=== PATIENT | female | born 1965 | race Caucasian/White ===

== ENCOUNTER 2017-05-18 06:13 | Day surgery (SDC) | payer OTHER ==
[~2017-05-18] VITALS: Ht 170.2 cm; Wt 114.3 kg
[2017-05-18] VITALS (7 sets, daily range): BP systolic 125–186; BP diastolic 59–99
[~2017-05-18 06:13] MED LIST: ARTI99.0; ASPI81TA21; CALCTAB68 PO; DIVA500T9; FLUTISP; FURO20TA2; GABA-279; MULT1TAB10 PO; NIFE30TA7; NITR1PA; OXCA600T; PANT40TA2; POTA1TAB23; VENTAER INH
[2017-05-18] MEDS ORDERED: LR 1,000 ML IV SCH ×2 (06:30→10:30)
[2017-05-18 06:46] LABS: MEAN CORPUSCULAR HEMOGLOBIN 28.3 pg (27.0-33.0); MEAN CORPUSCULAR HGB CONC 32.5 g/dl (32.0-36.5); MEAN CORPUSCULAR VOLUME 86.9 fl (80.0-96.0); PLATELET COUNT, AUTOMATED 196 10^3/uL (150-450); RED CELL DISTRIBUTION WIDTH 15.3 % (11.5-14.5); WHITE BLOOD COUNT 4.7 10^3/uL (4.0-10.0)
[2017-05-18 06:57] LABS: INR 0.95
[2017-05-18] MEDS ORDERED: ONDANSETRON 4MG/2ML VIAL (J2405) As Ordered ONE (07:03)
[2017-05-18] MEDS ORDERED: ROCURONIUM BROMIDE 50 MG/5 ML VIAL As Ordered ONE ×2 (07:03→08:38)
[2017-05-18] MEDS ORDERED: PROPOFOL 200 MG/20 ML VIAL As Ordered ONE (07:03)
[2017-05-18] MEDS ORDERED: GLYCOPYRROLATE INJ 0.2 MG/ML 2 ML VIAL As Ordered ONE ×2 (07:03→08:30)
[2017-05-18] MEDS ORDERED: NEOSTIGMINE 10 MG/10 ML VIAL (J2710) As Ordered ONE (07:03)
[2017-05-18] MEDS ORDERED: HYDROmorphone HCL 2 MG/ML 1ML VIAL (J1170) As Ordered ONE (07:03)
[2017-05-18] MEDS ORDERED: LIDOCAINE 2% INJ 100 MG/5 ML SDV (FOR ANES.) As Ordered ONE (07:03)
[2017-05-18] MEDS ORDERED: fentaNYL 100 MCG/2 ML INJECTION (J3010) As Ordered ONE (07:03)
[2017-05-18] MEDS ORDERED: MIDAZOLAM INJ 2 MG/2 ML VIAL (J2250) As Ordered ONE (07:04)
[2017-05-18] MEDS ORDERED: ALBUTEROL SULFATE 2.5 MG/0.5 ML INH NEB SOLN As Ordered ONE ×2 (07:10→09:37)
[2017-05-18] MEDS ORDERED: BUPIVACAINE HCL 0.25% 30 ML VIAL As Ordered ONE (07:11)
[2017-05-18] MEDS ORDERED: METHYLENE BLUE 0.5% (5MG/ML) 10 ML AMP (PROVAYBLUE)(Q9968 PER 1MG) As Ordered ONE (07:11)
[2017-05-18] MEDS ORDERED: SCOPOLAMINE 1MG TRANSDERMAL PATCH As Ordered ONE (07:31)
[2017-05-18] MEDS ORDERED: LIDOCAINE 1% MDV 20ML VIAL SQ PRN (07:45)
[2017-05-18] MEDS ORDERED: LR 1,000 ML IV ONE (07:45)
[2017-05-18] MEDS ORDERED: dexameTHASONE 4 MG/ML 1ML VIAL (J1100) As Ordered ONE (08:29)
[2017-05-18] MEDS ORDERED: MEPERIDINE INJ 25 MG/ML VIAL (J2175) As Ordered ONE (09:33)
[2017-05-18] MEDS: MEPERIDINE INJ 25 MG/ML VIAL (J2175) IV PRN ×2 (09:38→09:47)
[2017-05-18] MEDS ORDERED: OXYCO5TA GT (09:48)
[2017-05-18] MEDS ORDERED: ONDANSETRON 4MG/2ML VIAL (J2405) IV PRN (10:30)
[2017-05-18] MEDS ORDERED: oxyCODONE 5MG TAB PO PRN (10:30)
[2017-05-18] MEDS ORDERED: HYDROmorphone HCL 1 MG/ML SYRINGE (J1170) IV PRN (10:30)
[2017-05-18] MEDS ORDERED: LABETALOL HCL 100 MG/20 ML VIAL IV SCH (10:30)
[2017-05-18] MEDS ORDERED: fentaNYL 100 MCG/2 ML INJECTION (J3010) IV PRN (10:30)
[2017-05-18] MEDS ORDERED: ALBUTEROL SULFATE 2.5 MG/0.5 ML INH NEB SOLN INH ONE (10:30)
[2017-05-18] MEDS ORDERED: PERCOCET 5MG/325MG TAB PO PRN (10:45)
[2017-05-18] MEDS ORDERED: ALBUTEROL 90 MCG/ACT 8GM HFA INHALER INH PRN (10:45)
[2017-05-18] MEDS ORDERED: MORPHINE 4 MG/ML 1ML SYRINGE IV PRN (10:45)
[2017-05-18] MEDS: LR 1,000 ML IV SCH ×2 (11:21→18:45)
[2017-05-18] MEDS: PERCOCET 5MG/325MG TAB PO PRN ×2 (13:43→21:19)
[2017-05-18] MEDS: GABAPENTIN 100 MG CAP PO SCH ×2 (16:02→21:18)
[2017-05-18] MEDS: ENOXAPARIN 40 MG/0.4 ML SYRINGE (J1650) SC SCH (21:19)
[2017-05-18] MEDS: DOCUSATE SODIUM 100 MG CAP PO SCH (21:19)
[2017-05-19] VITALS: BP 122/82
[2017-05-19] MEDS: PERCOCET 5MG/325MG TAB PO PRN ×2 (01:50→06:06)
[2017-05-19] MEDS: LR 1,000 ML IV SCH (02:45)
[2017-05-19 04:00] VITALS: BP 140/76
[2017-05-19 08:00] VITALS: BP 138/71
[2017-05-19] MEDS: GABAPENTIN 100 MG CAP PO SCH (08:03)
[2017-05-19] MEDS: DOCUSATE SODIUM 100 MG CAP PO SCH (08:03)
[2017-05-19] MEDS: ENOXAPARIN 40 MG/0.4 ML SYRINGE (J1650) SC SCH (08:03)
[2017-05-19] MEDS ORDERED: PANTOPRAZOLE 40MG TAB (PROTONIX) PO SCH (09:00)
[2017-05-19] MEDS ORDERED: LOVE1INJ SC (09:29)
--- NOTE | 2017-05-20 11:40 | RO ---
DATE OF PROCEDURE: 05/18/2017 PREPROCEDURE DIAGNOSIS: Menorrhagia. POSTPROCEDURE DIAGNOSIS: Menorrhagia. PROCEDURE: Robotic assisted laparoscopic hysterectomy, cystoscopy. SURGEON: Dr. Danny Caro. RESEARCH AND INSIGHTS EXECUTIVE: ANESTHESIA: General endotracheal. ESTIMATED BLOOD LOSS: 50 mL. URINE OUTPUT: 200 mL FINDINGS: Normal uterus. Normal ovaries and fallopian tubes and upper abdomen. DESCRIPTION OF PROCEDURE: The patient was taken to the operating room where general endotracheal anesthesia was induced. She was prepped and draped in a sterile in the dorsal lithotomy position. A Vincent catheter was placed. The Vcare uterine manipulator was placed. A periumbilical incision was made with a scalpel. Direct trocar entry using 11 mm scope with Visiport was performed and a pneumoperitoneum was created. Three 8 mm suprapubic ports were placed under direct visualization without difficulty. The Air[employer] surgical robot was docked to the ports. Using PK dissector and monopolar endoshears, the utero-ovarian ligaments, fallopian tubes and round ligaments were coagulated and incised. Anteriorly and posteriorly, the broad ligaments were and incised. A bladder flap was created with a combination of blunt and sharp dissection. The uterine vessels were coagulated and incised. Colpotomy was created using the monopolar endoshears and the upper vagina at the level of the Vcare cup was circumscribed. Specimen including the uterus and cervix was removed through the vagina. The vaginal cuff was closed with 0 V-Loc suture in a running fashion. The pelvis was irrigated. All instruments removed. The patient received methylene blue dye intravenously. Cystoscopy was performed using a 7 degree cystoscope. Bilateral ureteral jets were identified. There was no evidence of injury to the bladder. All instruments were removed and the Vincent catheter was placed. The robotic ports were all removed. The skin was closed with #4-0 Monocryl subcuticular sutures. Sponge, instrument and needle counts are correct.
== END 2017-05-19 10:05 | disposition home or self-care (01) ==
LOC: M SDC 06:13 → M PED 11:10 → M SDC 05-19 10:05
PROVIDERS: ATTEND Specialist
DX: N92.0 Excessive and frequent menstruation with regular cycle (principal); T45.515A Adverse effect of anticoagulants, initial encounter; I10 Essential (primary) hypertension; I83.11 Varicose veins of right lower extremity with inflammation; E11.9 Type 2 diabetes mellitus without complications; E66.01 Morbid (severe) obesity due to excess calories; F31.9 Bipolar disorder, unspecified; G47.33 Obstructive sleep apnea (adult) (pediatric); J44.9 Chronic obstructive pulmonary disease, unspecified; N39.3 Stress incontinence (female) (male); I25.2 Old myocardial infarction; I73.00 Raynaud's syndrome without gangrene; M17.0 Bilateral primary osteoarthritis of knee; Z86.711 Personal history of pulmonary embolism; Z86.718 Personal history of other venous thrombosis and embolism; Z79.899 Other long term (current) drug therapy; Z79.01 Long term (current) use of anticoagulants; Z98.84 Bariatric surgery status; Z88.0 Allergy status to penicillin; Z88.2 Allergy status to sulfonamides; Z88.6 Allergy status to analgesic agent; Z87.891 Personal history of nicotine dependence